=== PATIENT | female | born 1995 | race African-American/Black ===

== ENCOUNTER 2016-06-20 23:53 | Emergency (ER) | payer OTHER ==
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
== END 2016-06-21 03:58 | disposition home or self-care (01) ==
LOC: CED 23:53
DX: S00.83XA Contusion of other part of head, initial encounter (principal); S50.11XA Contusion of right forearm, initial encounter; Y08.89XA Assault by other specified means, initial encounter; Y92.009 Unspecified place in unspecified non-institutional (private) residence as the place of occurrence of the external cause
CPT/HCPCS: 70150; 70450; 72040; 73060; 73090; 84703; 90715; 99284